=== PATIENT | female | born 1985 | race Two or more races ===

== ENCOUNTER 2017-06-21 14:19 | Emergency (ER) | payer OTHER ==
[~2017-06-21] VITALS: Ht 157.5 cm; Wt 49.9 kg
[2017-06-21] MEDS ORDERED: IV NORMAL SALINE 1000ML BAG 1,000 ML IV SCH (14:59)
[2017-06-21] MEDS ORDERED: ONDANSETRON PF 4 MG/2 ML VIAL. IV ONE (15:00)
[2017-06-21 15:10] LABS: BASO % 1 % (0-3); EOS % 5 % (0-3); HEMOGLOBIN 12.9 g/dL (12.0-15.5); LYMPH # 1.2 x10^3/uL (1.0-4.8); LYMPH % 48 % (24-48); MEAN CORPUSCULAR HEMOGLOBIN 28 pg (25-35); MEAN CORPUSCULAR HGB CONC 34 g/dL (31-37); MEAN CORPUSCULAR VOLUME 84 fL (79-100); MONO % 14 % (0-9); NEUT % 33 % (31-73); PLATELET COUNT 239 x10^3/uL (140-400); RED BLOOD COUNT 4.55 x10^6/uL (3.50-5.40); RED CELL DISTRIBUTION WIDTH 14.6 % (11.5-14.5); WHITE BLOOD COUNT 2.5 x10^3/uL (4.0-11.0)
[2017-06-21 15:17] LABS: BILIRUBIN,URINE NEGATIVE (NEG); GLUCOSE,URINE NEGATIVE (NEG); NITRITE,URINE NEGATIVE (NEG); PH,URINE 7.5; PROTEIN,URINE NEGATIVE (NEG-TRACE); UROBILINOGEN,URINE 0.2 mg/dL (0.2 mg/dL)
[2017-06-21 15:20] LABS: BACTERIA,URINE 0 /HPF (0-FEW); RBC,URINE >40 /HPF (0-2); SQUAMOUS EPITHELIAL CELL,UR FEW /LPF; WBC,URINE 0 /HPF (0-4)
[2017-06-21] MEDS: HYDROmorphone 2 MG/ML VIAL IV/SQ PRN ×4 (15:20→17:10)
[2017-06-21 15:24] LABS: CALCIUM 9.3 mg/dL (8.5-10.1); CREATININE 0.7 mg/dL (0.6-1.0); GFR 98.9; POTASSIUM 3.9 mmol/L (3.5-5.1)
[2017-06-21 15:30] LABS: ALBUMIN 3.9 g/dL (3.4-5.0); TOTAL BILIRUBIN 0.3 mg/dL (0.2-1.0); TOTAL PROTEIN 7.7 g/dL (6.4-8.2)
--- NOTE | 2017-06-21 16:11 | PHYS DOC ---
Past Medical History Past Medical History: Anxiety, Ectopic , Kidney Stone, Ovarian Cyst Past Surgical History: Cholecystectomy, Tubal ligation Alcohol Use: Rarely Drug Use: None Adult General Chief Complaint Chief Complaint: FLANK PAIN HPI HPI Patient is a 31 year old female who presents with complaint of severe left flank pain. Patient states that her pain is currently 10 out of 10. Patient states that she has history of kidney stones. Patient was brought to the emergency department by EMS after stating that she had pain that was so severe that she passed out. The patient per EMS immediately requested IV pain medication upon their arrival and asked what pain medicine they would be giving her. At bedside in the emergency department, the patient states that she continues to have severe pain and was not given medications prior to arrival by EMS. The patient states that she has a history of kidney stones and states that she has followed at [facility] [place] with urology or treatment but states that she recently had her care switched over to [facility] as she wanted to follow with urology here at our hospital. The patient was unaware that urology does not exist here [place] as of April 2017. The patient also interrupted my history taking to ask what pain medication would be given to her. The patient states that she has had bad reactions to fentanyl and morphine but states that Dilaudid is the only thing that works for her pain. Patient also states that she cannot have Toradol as this has been linked to her having "seizures." Patient states that she follows with Dr. Espinoza. The patient does not have any medications at home to help her symptoms which is why she came to the emergency department for evaluation. Patient has had associated nausea and vomiting. The patient states that she does not follow with any other physicians. Review of Systems Review of Systems Constitutional: Denies fever or chills [] Eyes: Denies change in visual acuity, redness, or eye pain [] HENT: Denies nasal congestion or sore throat [] Respiratory: Denies cough or shortness of breath [] Cardiovascular: Denies chest pain or edema[] GI: Nausea, vomiting, denies diarrhea[] : Left flank pain[] Musculoskeletal: Denies back pain or joint pain [] Integument: Denies rash or skin lesions [] Neurologic: Denies headache, focal weakness or sensory changes [] Current Medications Current Medications Current Medications Medications (Trade) Dose Ordered Sig/[facility] Start Time Stop Time Status Last Admin Dose Admin Hydromorphone HCl (Dilaudid) 1 mg PRN Q15MIN PRN 06/21/17 15:00 06/21/17 19:32 DC 06/21/17 17:10 1 MG Ondansetron HCl (Zofran) 4 mg 1X ONCE 06/21/17 15:00 06/21/17 15:04 DC 06/21/17 15:19 4 MG Sodium Chloride 1,000 ml @ 1,000 mls/hr Q1H 06/21/17 14:59 06/21/17 15:58 DC 06/21/17 15:20 1,000 MLS/HR Allergies Allergies Allergies Coded Allergies Type Severity Reaction Last Updated Verified ketorolac Allergy Severe 12/29/15 Yes latex Allergy Intermediate Rash 12/29/15 Yes Physical Exam Physical Exam Constitutional: Alert, afebrile, tachycardic, appears anxious and in moderate to severe discomfort. [] HENT: Normocephalic, atraumatic, bilateral external ears normal, oropharynx moist, no oral exudates, nose normal. [] Eyes: PERRLA, EOMI, conjunctiva normal, no discharge. [] Neck: Normal range of motion, no tenderness, supple, no stridor. [] Cardiovascular: Tachycardia, regular rhythm, no murmur [] Lungs & Thorax: Bilateral breath sounds clear to auscultation [] Abdomen: Bowel sounds normal, soft, left lower quadrant tenderness to palpation with voluntary guarding, no rebound tenderness, no masses, no pulsatile masses. [] Skin: Warm, dry, no erythema, no rash. [] Back: No midline tenderness, left CVA tenderness, no flank ecchymosis. [] Extremities: No tenderness, no cyanosis, no clubbing, ROM intact, no edema. [] Neurologic: Alert and oriented X 3, normal motor function, normal sensory function, no focal deficits noted. [] Current Patient Data Vital Signs Vital Signs Date Time Temp Pulse Resp B/P (MAP) Pulse Ox O2 Delivery O2 Flow Rate FiO2 06/21/17 19:00 82 11 102/75 (84) 98 Room Air 06/21/17 16:59 95.0 06/21/17 14:20 98.0 98.0 Lab Values Laboratory Tests Test 06/21/17 14:30 9/16/17 14:35 White Blood Count 2.5 x10^3/uL (4.0-11.0) L Red Blood Count 4.55 x10^6/uL (3.50-5.40) Hemoglobin 12.9 g/dL (12.0-15.5) Hematocrit 38.0 % (36.0-47.0) Mean Corpuscular Volume 84 fL (79-100) Mean Corpuscular Hemoglobin 28 pg (25-35) Mean Corpuscular Hemoglobin Concent 34 g/dL (31-37) Red Cell Distribution Width 14.6 % (11.5-14.5) H Platelet Count 239 x10^3/uL (140-400) Neutrophils (%) (Auto) 33 % (31-73) Lymphocytes (%) (Auto) 48 % (24-48) Monocytes (%) (Auto) 14 % (0-9) H Eosinophils (%) (Auto) 5 % (0-3) H Basophils (%) (Auto) 1 % (0-3) Neutrophils # (Auto) 0.8 x10^3uL (1.8-7.7) L Lymphocytes # (Auto) 1.2 x10^3/uL (1.0-4.8) Monocytes # (Auto) 0.3 x10^3/uL (0.0-1.1) Eosinophils # (Auto) 0.1 x10^3/uL (0.0-0.7) Basophils # (Auto) 0.0 x10^3/uL (0.0-0.2) Urine Collection Type Unknown Urine Color Yellow Urine Clarity Clear Urine pH 7.5 Urine Specific Iron 1.010 Urine Protein Negative mg/dL (NEG-TRACE) Urine Glucose (UA) Negative mg/dL (NEG) Urine Ketones (Stick) Trace mg/dL (NEG) Urine Blood Large (NEG) Urine Nitrite Negative (NEG) Urine Bilirubin Negative (NEG) Urine Urobilinogen Dipstick 0.2 mg/dL (0.2 mg/dL) Urine Leukocyte Esterase Negative (NEG) Urine RBC >40 /HPF (0-2) Urine WBC 0 /HPF (0-4) Urine Squamous Epithelial Cells Few /LPF Urine Bacteria 0 /HPF (0-FEW) Sodium Level 138 mmol/L (136-145) Potassium Level 3.9 mmol/L (3.5-5.1) Chloride Level 104 mmol/L (98-107) Carbon Dioxide Level 26 mmol/L (21-32) Anion Gap 8 (6-14) Blood Urea Nitrogen 11 mg/dL (7-20) Creatinine 0.7 mg/dL (0.6-1.0) Estimated GFR (Cockcroft-Gault) 98.9 BUN/Creatinine Ratio 16 (6-20) Glucose Level 92 mg/dL (70-99) Calcium Level 9.3 mg/dL (8.5-10.1) Total Bilirubin 0.3 mg/dL (0.2-1.0) Aspartate Amino Transferase (AST) 16 U/L (15-37) Alanine Aminotransferase (ALT) 20 U/L (14-59) Alkaline Phosphatase 84 U/L (46-116) Total Protein 7.7 g/dL (6.4-8.2) Albumin 3.9 g/dL (3.4-5.0) Albumin/Globulin Ratio 1.0 (1.0-1.7) Lipase 234 U/L (73-393) POC Urine HCG, Qualitative Hcg negative (Negative) Laboratory Tests 06/21/17 14:30 Laboratory Tests 06/21/17 14:30 EKG EKG Not performed[] Radiology/Procedures Radiology/Procedures [facility] [address] [place] [address] IMAGING REPORT Signed PATIENT: PAPO [place] ACCOUNT: [id number] : 1985 LOCATION: ER AGE: 31 SEX: F EXAM STATUS: REG ER ORD. PHYSICIAN: VÍCTOR FERNANDEZ MD REASON: left flank pain, reported history of kidney stone, eval for hydronephrosis PROCEDURE: RENAL COMPLETE LEFT Renal ultrasound 06/21/2017 at 5:17 PM INDICATION: Left flank pain with history of kidney stone. COMPARISON: CT abdomen/pelvis February 22, 2016 TECHNIQUE: Sonographic imaging of the kidneys is performed utilizing grayscale and color Doppler. FINDINGS: The right kidney measures 10.0 x 4.3 x 5.2 cm. Left kidney measures 10.3 x 5.7 x 5.9 cm. Kidneys are normal in echogenicity. Previously seen right-sided renal calculi are not definitively seen on the current examination. There is no hydronephrosis. No contour deforming renal mass. Urinary bladder is within normal limits. Bilateral ureteral jets are visualized. There is 332 cc postvoid residual. IMPRESSION: 1. No evidence for obstructive uropathy. No hydronephrosis. PICC line 2. 332 cc postvoid residual. Electronically signed by: Larissa Velez MD (06/21/2017 6:38 PM) [facility] DICTATED and SIGNED BY: LARISSA VELEZ MD DATE: 06/21/17 183 CC: VÍCTOR FERNANDEZ MD; MOLLY ESPINOZA MD ~ [] Course & Med Decision Making Course & Med Decision Making Pertinent Labs and Imaging studies reviewed. (See chart for details) The patient states that she has had multiple CT scans in the past 4 similar complaints. The patient's CT scan which was completed on February 22, 2016 here [facility] showed no evidence of left renal calculi but did show calcifications in the right kidney which is contralateral to the patient's current complaints. Due to concern for re-exposure to radiation, the patient was evaluated through blood work and left renal ultrasound. Patient's blood work was unremarkable and patient's renal ultrasound showed no evidence of hydronephrosis. The patient was given 4 doses of IV Dilaudid in the emergency department which initially helped with patient's symptoms, however the patient would request additional doses of IV Dilaudid within an hour of receiving the previous. Based off of the patient's behavior, I have suspicion that the patient is displaying drug-seeking behavior. The patient was referenced on [employer] prescription drug tracking system it was found to have filled prescriptions on June 19, 2017 for Ambien and alprazolam. Patient also was found to have received oxycodone last filled in March 2017. These medications were filled by Dr. Honorio Castaneda, the patient's doctor over the past several months who she failed to mention when asked if she had any physicians writing for pain medications for her. I spoke with patient regarding, and she admitted that she had been following with Dr. Castaneda but stopped following with him because she "did not jive well" under his care. I do not find any immediate life -threatening causes for the patient's pain. I instructed the patient that I would not be able to write her for any narcotic pain medication prescriptions. Due to the presence of hematuria, the patient may have a small nonobstructive stone causing her symptoms though this is unlikely as the patient's previous CT showed evidence of right-sided ureteral stones. Nonetheless, the patient was given a prescription for Flomax. The patient was also given prescriptions for Keflex and Zofran for treatment of possible urinary tract infection associated with the patient's symptoms. I recommended that the patient follow-up in 2 days with her primary doctor, Dr. Espinoza, for reevaluation. Recommended that the patient return to the emergency department for any worsening symptoms. Dragon Disclaimer Dragon Disclaimer This electronic medical record was generated, in whole or in part, using a voice recognition dictation system. Departure Departure Impression: Primary Impression: Flank pain Additional Impression: Hematuria Disposition: HOME, SELF-CARE Condition: STABLE Referrals: MOLLY ESPINOZA MD (PCP) Patient Instructions: Flank Pain Additional Instructions: Follow-up in [address] Espinoza for reevaluation. Return to the emergency department for any worsening symptoms. Scripts Ondansetron (ZOFRAN ODT) 4 Mg Tab.rapdis 1 TAB SL Q8HRS Y for NAUSEA/VOMITING, #15 TAB Prov: VÍCTOR FERNANDEZ MD 06/21/17 Cephalexin (KEFLEX) 500 Mg Capsule 1 CAP PO TID, #21 CAP Prov: VÍCTOR FERNANDEZ MD 06/21/17 Tamsulosin Hcl (FLOMAX) 0.4 Mg Cap.er.24h 1 CAP PO DAILY, #30 CAP 0 Refills Prov: VÍCTOR FERNANDEZ MD 06/21/17 Problem Qualifiers Additional Impression: Hematuria Hematuria type: unspecified type Qualified Codes: R31.9 - Hematuria, unspecified VÍCTOR FERNANDEZ MD Jun 21, 2017 16:11
--- NOTE | 2017-06-21 18:41 | RAD ---
Renal ultrasound 06/21/2017 at 5:17 PM INDICATION: Left flank pain with history of kidney stone. COMPARISON: CT abdomen/pelvis February 22, 2016 TECHNIQUE: Sonographic imaging of the kidneys is performed utilizing grayscale and color Doppler. FINDINGS: The right kidney measures 10.0 x 4.3 x 5.2 cm. Left kidney measures 10.3 x 5.7 x 5.9 cm. Kidneys are normal in echogenicity. Previously seen right-sided renal calculi are not definitively seen on the current examination. There is no hydronephrosis. No contour deforming renal mass. Urinary bladder is within normal limits. Bilateral ureteral jets are visualized. There is 332 cc postvoid residual. IMPRESSION: 1. No evidence for obstructive uropathy. No hydronephrosis. PICC line 2. 332 cc postvoid residual. Electronically signed by: Lucy Jimenez MD (06/21/2017 6:38 PM) [facility]
[2017-06-21 19:00] VITALS: BP 102/75
[2017-06-21] MEDS ORDERED: ONDA4TAB10 SL (19:13)
[2017-06-21] MEDS ORDERED: CEPH-264 PO (19:13)
[2017-06-21] MEDS ORDERED: TAMS0.4C97 PO (19:13)
== END 2017-06-21 19:31 | disposition home or self-care (01) ==
LOC: ER 14:19
DX: R10.32 Left lower quadrant pain (principal); R31.9 Hematuria, unspecified; Z87.442 Personal history of urinary calculi; Z90.49 Acquired absence of other specified parts of digestive tract; Z98.51 Tubal ligation status; Z88.6 Allergy status to analgesic agent; Z91.040 Latex allergy status
CPT/HCPCS: 36415; 76775; 80053; 81001; 81025; 83690; 85025; 96361; 96374; 96375; 96376; 99285; J1170; J2405; J7030

== ENCOUNTER 2017-10-23 13:02 | Emergency (ER) | payer OTHER ==
[2017-10-23 13:27] LABS: URINE HCG POC HCG NEGATIVE (Negative)
[2017-10-23] MEDS: HYDROcodone/APAP 10/325 1 TAB TABLET PO (13:44)
[2017-10-23] MEDS: PHENAZOPYRIDINE 200 MG TABLET. PO (13:44)
[2017-10-23] MEDS: ONDANSETRON ODT 4 MG TAB.RAPDIS. PO (13:44)
[2017-10-23 13:46] LABS: BILIRUBIN,URINE NEGATIVE (NEG); CLARITY,URINE CLEAR; GLUCOSE,URINE NEGATIVE (NEG); NITRITE,URINE NEGATIVE (NEG); PH,URINE 7.5; PROTEIN,URINE NEGATIVE (NEG-TRACE)
[2017-10-23 13:55] LABS: BACTERIA,URINE MANY /HPF (0-FEW); COLOR,URINE STRAW; RBC,URINE OCC /HPF (0-2); SQUAMOUS EPITHELIAL CELL,UR MANY /LPF
== END 2017-10-23 15:34 | disposition home or self-care (01) ==
LOC: ER 13:02
DX: R10.31 Right lower quadrant pain (principal); R11.2 Nausea with vomiting, unspecified; R30.0 Dysuria; Z87.442 Personal history of urinary calculi; Z87.440 Personal history of urinary (tract) infections; Z90.49 Acquired absence of other specified parts of digestive tract; Z98.51 Tubal ligation status; Z88.6 Allergy status to analgesic agent; Z91.040 Latex allergy status
CPT/HCPCS: 74176; 81001; 81025; 87086; 99285-25; Q0162

== ENCOUNTER 2017-10-29 03:50 | Emergency (ER) | payer OTHER ==
[2017-10-29 04:18] LABS: URINE HCG POC HCG NEGATIVE (Negative)
[2017-10-29 04:21] LABS: ADD MAN DIFF? NO
[2017-10-29 04:27] LABS: BILIRUBIN,URINE NEGATIVE (NEG); CLARITY,URINE CLEAR; COLOR,URINE AMBER; GLUCOSE,URINE NEGATIVE (NEG); NITRITE,URINE NEGATIVE (NEG); PROTEIN,URINE 30 mg/dL (NEG-TRACE); UROBILINOGEN,URINE 0.2 mg/dL (0.2 mg/dL)
[2017-10-29 04:30] LABS: BASO % 1 % (0-3); EOS % 1 % (0-3); HEMATOCRIT 36.4 % (36.0-47.0); HEMOGLOBIN 12.1 g/dL (12.0-15.5); LYMPH # 1.8 x10^3/uL (1.0-4.8); LYMPH % 42 % (24-48); MEAN CORPUSCULAR HEMOGLOBIN 30 pg (25-35); MEAN CORPUSCULAR HGB CONC 33 g/dL (31-37); MEAN CORPUSCULAR VOLUME 91 fL (79-100); MONO # 0.3 x10^3/uL (0.0-1.1); MONO % 7 % (0-9); NEUT # 2.1 x10^3uL (1.8-7.7); NEUT % 49 % (31-73); PLATELET COUNT 172 x10^3/uL (140-400); RED BLOOD COUNT 4.01 x10^6/uL (3.50-5.40); RED CELL DISTRIBUTION WIDTH 13.1 % (11.5-14.5); WHITE BLOOD COUNT 4.3 x10^3/uL (4.0-11.0)
[2017-10-29 04:35] LABS: ANION GAP 12 (6-14); BLOOD UREA NITROGEN 14 mg/dL (7-20); BUN/CREATININE RATIO 18 (6-20); CALCIUM 8.6 mg/dL (8.5-10.1); CARBON DIOXIDE 26 mmol/L (21-32); CHLORIDE 103 mmol/L (98-107); CREATININE 0.8 mg/dL (0.6-1.0); GFR 84.2; GLUCOSE 91 mg/dL (70-99); POTASSIUM 3.8 mmol/L (3.5-5.1); SODIUM 141 mmol/L (136-145)
[2017-10-29] MEDS: IV NORMAL SALINE 1000ML BAG 1,000 ML IV ×2 (04:37)
[2017-10-29 04:40] LABS: ALBUMIN 3.4 g/dL (3.4-5.0); ALK PHOS 45 U/L (46-116); ALT (SGPT) 8 U/L (14-59); AST (SGOT) 8 U/L (15-37); LIPASE 190 U/L (73-393); TOTAL BILIRUBIN 0.3 mg/dL (0.2-1.0); TOTAL PROTEIN 6.9 g/dL (6.4-8.2)
[2017-10-29] MEDS: HYDROmorphone 2 MG/ML VIAL IV/SQ ×4 (04:40→05:06)
[2017-10-29] MEDS: ONDANSETRON PF 4 MG/2 ML VIAL. IV ×2 (04:40)
[2017-10-29 04:43] LABS: RBC,URINE TNTC /HPF (0-2)
[2017-10-29 04:44] LABS: BACTERIA,URINE 0 /HPF (0-FEW); SQUAMOUS EPITHELIAL CELL,UR OCC /LPF; WBC,URINE 0 /HPF (0-4)
== END 2017-10-29 06:22 | disposition home or self-care (01) ==
LOC: ER 03:50
DX: R10.11 Right upper quadrant pain (principal); R31.9 Hematuria, unspecified; F41.9 Anxiety disorder, unspecified; Z87.442 Personal history of urinary calculi; Z90.49 Acquired absence of other specified parts of digestive tract; Z98.51 Tubal ligation status; Z88.8 Allergy status to other drugs, medicaments and biological substances; Z88.1 Allergy status to other antibiotic agents; Z91.040 Latex allergy status
CPT/HCPCS: 36415; 74176; 80053; 81001; 81025; 83690; 85025; 96361; 96374; 96375; 99285-25; J1170; J2405; J7030

== ENCOUNTER 2017-10-31 09:26 | Emergency (ER) | payer OTHER ==
[2017-10-31 09:57] LABS: BILIRUBIN,URINE NEGATIVE (NEG); CLARITY,URINE CLEAR; COLOR,URINE RED; GLUCOSE,URINE NEGATIVE (NEG); NITRITE,URINE POSITIVE (NEG); PROTEIN,URINE 30 mg/dL (NEG-TRACE)
[2017-10-31 10:10] LABS: RBC,URINE TNTC /HPF (0-2); SQUAMOUS EPITHELIAL CELL,UR MANY /LPF
[2017-10-31 10:11] LABS: BACTERIA,URINE MODERATE /HPF (0-FEW)
[2017-10-31 10:14] LABS: NEG OBC UR NEG; POS OBC UR POS; U PREG PATIENT NEGATIVE (NEG)
[2017-10-31] MEDS: ONDANSETRON PF 4 MG/2 ML VIAL. IV (10:14)
[2017-10-31] MEDS: MORPHINE SULFATE 10 MG/ML VIAL. IV (10:14)
[2017-10-31] MEDS: HYDROmorphone 2 MG/ML VIAL IV (10:17)
[2017-10-31 10:18] LABS: ADD MAN DIFF? NO
[2017-10-31 10:21] LABS: BASO % 1 % (0-3); EOS # 0.1 x10^3/uL (0.0-0.7); EOS % 4 % (0-3); HEMOGLOBIN 11.3 g/dL (12.0-15.5); LYMPH # 1.3 x10^3/uL (1.0-4.8); LYMPH % 37 % (24-48); MEAN CORPUSCULAR HEMOGLOBIN 31 pg (25-35); MEAN CORPUSCULAR HGB CONC 34 g/dL (31-37); MEAN CORPUSCULAR VOLUME 92 fL (79-100); MONO # 0.3 x10^3/uL (0.0-1.1); MONO % 8 % (0-9); NEUT # 1.7 x10^3uL (1.8-7.7); NEUT % 50 % (31-73); PLATELET COUNT 134 x10^3/uL (140-400); WHITE BLOOD COUNT 3.5 x10^3/uL (4.0-11.0)
[2017-10-31 10:25] LABS: BARBITURATES NEG (NEG); BENZODIAZEPINES POS (NEG); CANNABINOIDS NEG (NEG); COCAINE NEG (NEG); METHADONE NEG (NEG); OPIATES NEG (NEG); PHENCYCLIDINE NEG (NEG)
[2017-10-31 10:27] LABS: AMPHETAMINE/METHAMPHETAMINE NEG (NEG); ETHANOL, URINE NEG (NEG)
[2017-10-31 10:41] LABS: ANION GAP 7 (6-14); BLOOD UREA NITROGEN 10 mg/dL (7-20); BUN/CREATININE RATIO 11 (6-20); CALCIUM 8.4 mg/dL (8.5-10.1); CARBON DIOXIDE 30 mmol/L (21-32); CHLORIDE 101 mmol/L (98-107); CREATININE 0.9 mg/dL (0.6-1.0); GFR 73.5; GLUCOSE 89 mg/dL (70-99); SODIUM 138 mmol/L (136-145)
[2017-10-31 10:42] LABS: ALBUMIN 3.3 g/dL (3.4-5.0); ALK PHOS 42 U/L (46-116); ALT (SGPT) 8 U/L (14-59); AST (SGOT) 6 U/L (15-37); LIPASE 137 U/L (73-393); TOTAL BILIRUBIN 0.3 mg/dL (0.2-1.0); TOTAL PROTEIN 6.6 g/dL (6.4-8.2)
[2017-10-31] MEDS ORDERED: CIPROFLOXACIN 400MG PREMIX 200 ML IV (21:00)
[2017-11-03 20:13] LABS: CHLAMYDIA PROBE Negative (Negative); GC PROBE Negative (Negative)
== END 2017-10-31 13:42 | disposition home or self-care (01) ==
LOC: ER 09:26
DX: G89.29 Other chronic pain (principal); R10.31 Right lower quadrant pain; N39.0 Urinary tract infection, site not specified; F11.20 Opioid dependence, uncomplicated; Z90.49 Acquired absence of other specified parts of digestive tract; Z98.51 Tubal ligation status; Z88.6 Allergy status to analgesic agent; Z88.1 Allergy status to other antibiotic agents; Z91.040 Latex allergy status
CPT/HCPCS: 36415; 76700; 80053; 80307; 81001; 81025; 83690; 85025; 87086; 87491; 87591; 96365; 96375; 99285-25; J0690; J2270; J2405; Q0111

== ENCOUNTER 2017-11-04 18:14 | Emergency (ER) | payer OTHER ==
[2017-11-04 18:45] LABS: ADD MAN DIFF? NO
[2017-11-04 18:51] LABS: URINE HCG POC HCG NEGATIVE (Negative)
[2017-11-04 18:52] LABS: BILIRUBIN,URINE NEGATIVE (NEG); CLARITY,URINE CLOUDY; COLOR,URINE YELLOW; GLUCOSE,URINE NEGATIVE (NEG); NITRITE,URINE NEGATIVE (NEG); PROTEIN,URINE NEGATIVE (NEG-TRACE); UROBILINOGEN,URINE 0.2 mg/dL (0.2 mg/dL)
[2017-11-04] MEDS: IV NORMAL SALINE 1000ML BAG 1,000 ML IV ×2 (18:52)
[2017-11-04] MEDS: HALOPERIDOL LACTATE 5 MG/ML VIAL. IVP ×2 (18:52)
[2017-11-04] MEDS: METOCLOPRAMIDE HCL 10 MG/2 ML VIAL. IV ×2 (18:52)
[2017-11-04] MEDS: FAMOTIDINE 20 MG/2 ML VIAL IVP ×2 (18:52)
[2017-11-04 18:53] LABS: BASO % 0 % (0-3); EOS % 1 % (0-3); HEMOGLOBIN 12.8 g/dL (12.0-15.5); LYMPH # 0.8 x10^3/uL (1.0-4.8); LYMPH % 14 % (24-48); MEAN CORPUSCULAR HEMOGLOBIN 32 pg (25-35); MEAN CORPUSCULAR HGB CONC 35 g/dL (31-37); MEAN CORPUSCULAR VOLUME 92 fL (79-100); MONO # 0.2 x10^3/uL (0.0-1.1); MONO % 4 % (0-9); NEUT # 4.7 x10^3uL (1.8-7.7); NEUT % 81 % (31-73); PLATELET COUNT 171 x10^3/uL (140-400); RED BLOOD COUNT 4.04 x10^6/uL (3.50-5.40); RED CELL DISTRIBUTION WIDTH 13.2 % (11.5-14.5); WHITE BLOOD COUNT 5.7 x10^3/uL (4.0-11.0)
[2017-11-04] MEDS ORDERED: IOHEXOL 300 MG/ML 100ML VIAL. IV ×2 (19:00)
[2017-11-04 19:01] LABS: ANION GAP 11 (6-14); BLOOD UREA NITROGEN 16 mg/dL (7-20); BUN/CREATININE RATIO 18 (6-20); CALCIUM 10.2 mg/dL (8.5-10.1); CARBON DIOXIDE 26 mmol/L (21-32); CHLORIDE 103 mmol/L (98-107); CREATININE 0.9 mg/dL (0.6-1.0); GFR 73.5; GLUCOSE 134 mg/dL (70-99); POTASSIUM 4.2 mmol/L (3.5-5.1); SODIUM 140 mmol/L (136-145)
[2017-11-04 19:05] LABS: BACTERIA,URINE MODERATE /HPF (0-FEW); RBC,URINE 0 /HPF (0-2); SQUAMOUS EPITHELIAL CELL,UR MANY /LPF
[2017-11-04 19:07] LABS: ALBUMIN 3.9 g/dL (3.4-5.0); ALK PHOS 52 U/L (46-116); ALT (SGPT) 6 U/L (14-59); AST (SGOT) 9 U/L (15-37); LIPASE 133 U/L (73-393); TOTAL BILIRUBIN 0.3 mg/dL (0.2-1.0); TOTAL PROTEIN 7.8 g/dL (6.4-8.2)
[2017-11-04] MEDS ORDERED: CONTRAST GIVEN MC ×2 (19:15)
[2017-11-04] MEDS: ACETAMINOPHEN 500 MG TABLET PO ×2 (19:49)
== END 2017-11-04 19:52 | disposition home or self-care (01) ==
LOC: ER 18:14
DX: N39.0 Urinary tract infection, site not specified (principal); G89.29 Other chronic pain; Z90.49 Acquired absence of other specified parts of digestive tract; Z87.442 Personal history of urinary calculi; Z98.51 Tubal ligation status; Z88.1 Allergy status to other antibiotic agents; Z88.6 Allergy status to analgesic agent; Z91.040 Latex allergy status
CPT/HCPCS: 36415; 80053; 81001; 81025; 83690; 85025; 87086; 96361; 96374; 96375; 99284-25; J1630; J2765; J7030; S0028

== ENCOUNTER 2017-11-07 15:34 | Emergency (ER) | payer OTHER ==
[2017-11-07] MEDS: IV NORMAL SALINE 1000ML BAG 1,000 ML IV ×2 (16:57)
[2017-11-07] MEDS: PROMETHAZINE 12.5 MG in IV DEXTROSE 5% 50 ML IV (17:01)
[2017-11-07] MEDS: DEXAMETHASONE SOD PHOS 4 MG/ML VIAL IV ×2 (17:02)
[2017-11-07] MEDS: diphenhydrAMINE 50 MG/ML VIAL IVP ×2 (17:02)
[2017-11-07 17:20] LABS: URINE HCG POC HCG NEGATIVE (Negative)
[2017-11-07 17:33] LABS: BILIRUBIN,URINE NEGATIVE (NEG); CLARITY,URINE CLOUDY; COLOR,URINE YELLOW; GLUCOSE,URINE NEGATIVE (NEG); NITRITE,URINE NEGATIVE (NEG); PH,URINE 6.5; PROTEIN,URINE NEGATIVE (NEG-TRACE); UROBILINOGEN,URINE 0.2 mg/dL (0.2 mg/dL)
[2017-11-07 17:37] LABS: ANION GAP 9 (6-14); BLOOD UREA NITROGEN 15 mg/dL (7-20); BUN/CREATININE RATIO 17 (6-20); CALCIUM 8.6 mg/dL (8.5-10.1); CARBON DIOXIDE 26 mmol/L (21-32); CHLORIDE 104 mmol/L (98-107); CREATININE 0.9 mg/dL (0.6-1.0); GFR 73.5; GLUCOSE 93 mg/dL (70-99); POTASSIUM 3.4 mmol/L (3.5-5.1); SODIUM 139 mmol/L (136-145)
[2017-11-07 17:39] LABS: BARBITURATES NEG (NEG); BENZODIAZEPINES POS (NEG); CANNABINOIDS NEG (NEG); COCAINE NEG (NEG); METHADONE NEG (NEG); OPIATES NEG (NEG); PHENCYCLIDINE NEG (NEG)
[2017-11-07 17:43] LABS: AMPHETAMINE/METHAMPHETAMINE NEG (NEG); ETHANOL, URINE NEG (NEG)
[2017-11-07 17:44] LABS: ALBUMIN 3.4 g/dL (3.4-5.0); ALBUMIN/GLOBULIN RATIO 1.1 (1.0-1.7); ALK PHOS 43 U/L (46-116); ALT (SGPT) 14 U/L (14-59); AST (SGOT) 15 U/L (15-37); TOTAL BILIRUBIN 0.3 mg/dL (0.2-1.0); TOTAL PROTEIN 6.6 g/dL (6.4-8.2)
[2017-11-07 17:45] LABS: BACTERIA,URINE MODERATE /HPF (0-FEW); RBC,URINE 0 /HPF (0-2); SQUAMOUS EPITHELIAL CELL,UR MOD /LPF
[2017-11-07 17:46] LABS: HYALINE CASTS, URINE OCCASIONAL /HPF
[2017-11-07 17:51] LABS: ETHANOL < 10 mg/dL (0-10)
== END 2017-11-07 18:53 | disposition home or self-care (01) ==
LOC: ER 15:34
DX: R56.9 Unspecified convulsions (principal); F13.239 Sedative, hypnotic or anxiolytic dependence with withdrawal, unspecified; R00.0 Tachycardia, unspecified; F41.9 Anxiety disorder, unspecified; Z90.49 Acquired absence of other specified parts of digestive tract; Z98.51 Tubal ligation status; Z88.6 Allergy status to analgesic agent; Z88.1 Allergy status to other antibiotic agents; Z91.040 Latex allergy status
CPT/HCPCS: 36415; 70450; 80053; 80307; 81001; 81025; 87040; 87086; 93005; 96365; 96366; 96375; 99285-25; G0480; J1100; J1200; J2060; J2550; J7030

== ENCOUNTER 2017-11-20 19:38 | Emergency (ER) | payer OTHER ==
[2017-11-20 20:16] LABS: URINE HCG POC HCG NEGATIVE (Negative)
[2017-11-20 20:35] LABS: BILIRUBIN,URINE SMALL (NEG); CLARITY,URINE CLOUDY; COLOR,URINE RED; GLUCOSE,URINE NEGATIVE (NEG); NITRITE,URINE NEGATIVE (NEG); PROTEIN,URINE 30 mg/dL (NEG-TRACE)
[2017-11-20 20:47] LABS: ADD MAN DIFF? NO
[2017-11-20] MEDS: ONDANSETRON ODT 4 MG TAB.RAPDIS. PO ×2 (20:51)
[2017-11-20] MEDS: DICYCLOMINE HCL 10 MG CAPSULE PO ×2 (20:52)
[2017-11-20 20:53] LABS: BASO % 0 % (0-3); EOS # 0.1 x10^3/uL (0.0-0.7); EOS % 4 % (0-3); HEMATOCRIT 35.5 % (36.0-47.0); HEMOGLOBIN 12.4 g/dL (12.0-15.5); LYMPH # 1.6 x10^3/uL (1.0-4.8); LYMPH % 45 % (24-48); MEAN CORPUSCULAR HEMOGLOBIN 31 pg (25-35); MEAN CORPUSCULAR HGB CONC 35 g/dL (31-37); MEAN CORPUSCULAR VOLUME 90 fL (79-100); MONO # 0.2 x10^3/uL (0.0-1.1); MONO % 6 % (0-9); NEUT # 1.6 x10^3uL (1.8-7.7); NEUT % 45 % (31-73); PLATELET COUNT 264 x10^3/uL (140-400); RED BLOOD COUNT 3.96 x10^6/uL (3.50-5.40); RED CELL DISTRIBUTION WIDTH 13.3 % (11.5-14.5); WHITE BLOOD COUNT 3.6 x10^3/uL (4.0-11.0)
[2017-11-20] MEDS: traMADol 50 MG TABLET PO ×2 (20:53)
[2017-11-20 21:04] LABS: ANION GAP 8 (6-14); BACTERIA,URINE 0 /HPF (0-FEW); BLOOD UREA NITROGEN 17 mg/dL (7-20); BUN/CREATININE RATIO 19 (6-20); CALCIUM 9.3 mg/dL (8.5-10.1); CARBON DIOXIDE 29 mmol/L (21-32); CHLORIDE 104 mmol/L (98-107); CREATININE 0.9 mg/dL (0.6-1.0); GFR 73.5; GLUCOSE 110 mg/dL (70-99); POTASSIUM 3.7 mmol/L (3.5-5.1); RBC,URINE TNTC /HPF (0-2); SODIUM 141 mmol/L (136-145); SQUAMOUS EPITHELIAL CELL,UR OCC /LPF
[2017-11-20 21:11] LABS: ALBUMIN 3.7 g/dL (3.4-5.0); ALBUMIN/GLOBULIN RATIO 0.9 (1.0-1.7); ALK PHOS 51 U/L (46-116); ALT (SGPT) 23 U/L (14-59); AST (SGOT) 17 U/L (15-37); LIPASE 158 U/L (73-393); TOTAL BILIRUBIN 0.6 mg/dL (0.2-1.0); TOTAL PROTEIN 7.6 g/dL (6.4-8.2)
[2017-11-20] MEDS: fentaNYL PF VIAL 100 MCG/2 ML VIAL IV ×4 (21:13→22:08)
[2017-11-20] MEDS: ONDANSETRON PF 4 MG/2 ML VIAL. IV ×2 (21:14)
[2017-11-20] MEDS: HYDROcodone/APAP 5/325MG 1 TAB TABLET PO ×2 (22:39)
== END 2017-11-20 23:07 | disposition home or self-care (01) ==
LOC: ER 19:38
DX: R10.2 Pelvic and perineal pain (principal); R10.84 Generalized abdominal pain; R11.0 Nausea; R30.0 Dysuria; Z98.51 Tubal ligation status; Z90.49 Acquired absence of other specified parts of digestive tract; Z87.440 Personal history of urinary (tract) infections; Z88.1 Allergy status to other antibiotic agents; Z88.4 Allergy status to anesthetic agent; Z91.040 Latex allergy status
CPT/HCPCS: 36415; 76856; 80053; 81001; 81025; 83690; 85025; 87086; 96374; 96375; 96376; 99285-25; J2405; J3010; Q0162

== ENCOUNTER 2017-11-21 15:19 | Emergency (ER) | payer OTHER ==
[2017-11-21] MEDS ORDERED: IV NORMAL SALINE 1000ML BAG 1,000 ML IV ×2 (16:15)
[2017-11-21] MEDS ORDERED: ONDANSETRON PF 4 MG/2 ML VIAL. IV ×2 (16:15)
== END 2017-11-21 16:15 | disposition left against medical advice (07) ==
LOC: ER 15:19
DX: G89.29 Other chronic pain (principal); R10.9 Unspecified abdominal pain; F41.9 Anxiety disorder, unspecified; Z76.5 Malingerer [conscious simulation]; R10.2 Pelvic and perineal pain; Z98.51 Tubal ligation status; Z90.49 Acquired absence of other specified parts of digestive tract; Z87.440 Personal history of urinary (tract) infections; Z88.1 Allergy status to other antibiotic agents; Z88.6 Allergy status to analgesic agent; Z91.040 Latex allergy status
CPT/HCPCS: 99284

== ENCOUNTER 2017-12-16 12:48 | Emergency (ER) | payer OTHER ==
[2017-12-16 13:11] LABS: URINE HCG POC HCG NEGATIVE (Negative)
[2017-12-16 13:11] LABS: BILIRUBIN,URINE NEGATIVE (NEG); CLARITY,URINE CLEAR; COLOR,URINE YELLOW; GLUCOSE,URINE NEGATIVE (NEG); NITRITE,URINE NEGATIVE (NEG); PH,URINE 6.5; PROTEIN,URINE NEGATIVE (NEG-TRACE)
[2017-12-16 13:30] LABS: SQUAMOUS EPITHELIAL CELL,UR MANY /LPF
[2017-12-16 13:31] LABS: BACTERIA,URINE FEW /HPF (0-FEW); RBC,URINE OCC /HPF (0-2)
[2017-12-16] MEDS: ONDANSETRON PF 4 MG/2 ML VIAL. IV (14:47)
[2017-12-16] MEDS: fentaNYL PF VIAL 100 MCG/2 ML VIAL IV (14:48)
== END 2017-12-16 15:14 | disposition home or self-care (01) ==
LOC: ER 12:48
DX: R10.9 Unspecified abdominal pain (principal); R11.2 Nausea with vomiting, unspecified; Z87.440 Personal history of urinary (tract) infections; Z90.49 Acquired absence of other specified parts of digestive tract; Z98.51 Tubal ligation status; Z87.442 Personal history of urinary calculi; Z98.890 Other specified postprocedural states; Z88.6 Allergy status to analgesic agent; Z88.1 Allergy status to other antibiotic agents; Z91.040 Latex allergy status
CPT/HCPCS: 74176; 81001; 81025; 96374; 96375; 99285-25; J2405; J3010

== ENCOUNTER 2018-03-02 11:01 | Emergency (ER) | payer OTHER ==
[2018-03-02 11:33] LABS: URINE HCG POC HCG NEGATIVE (Negative)
[2018-03-02 11:37] LABS: ADD MAN DIFF? NO
[2018-03-02] MEDS: ONDANSETRON ODT 4 MG TAB.RAPDIS. PO (11:37)
[2018-03-02 11:38] LABS: BILIRUBIN,URINE NEGATIVE (NEG); CLARITY,URINE CLEAR; COLOR,URINE YELLOW; GLUCOSE,URINE NEGATIVE (NEG); NITRITE,URINE NEGATIVE (NEG); PROTEIN,URINE NEGATIVE (NEG-TRACE); UROBILINOGEN,URINE 0.2 mg/dL (0.2 mg/dL)
[2018-03-02] MEDS: HYDROcodone/APAP 5/325MG 1 TAB TABLET PO (11:38)
[2018-03-02] MEDS: LIDO:MAALOX 1:1 20 ML SINGLE DOSE. SWSW (11:38)
[2018-03-02] MEDS: HALOPERIDOL LACTATE 5 MG/ML VIAL. IM (11:39)
[2018-03-02 11:40] LABS: BARBITURATES NEG (NEG); BENZODIAZEPINES POS (NEG); CANNABINOIDS NEG (NEG); COCAINE NEG (NEG); METHADONE NEG (NEG); OPIATES NEG (NEG); PHENCYCLIDINE NEG (NEG)
[2018-03-02 11:42] LABS: AMPHETAMINE/METHAMPHETAMINE NEG (NEG); ETHANOL, URINE NEG (NEG)
[2018-03-02 11:44] LABS: BASO % 1 % (0-3); EOS # 0.1 x10^3/uL (0.0-0.7); EOS % 3 % (0-3); HEMOGLOBIN 13.1 g/dL (12.0-15.5); LYMPH # 1.2 x10^3/uL (1.0-4.8); LYMPH % 39 % (24-48); MEAN CORPUSCULAR HEMOGLOBIN 29 pg (25-35); MEAN CORPUSCULAR HGB CONC 34 g/dL (31-37); MEAN CORPUSCULAR VOLUME 85 fL (79-100); MONO # 0.3 x10^3/uL (0.0-1.1); MONO % 9 % (0-9); NEUT # 1.5 x10^3uL (1.8-7.7); NEUT % 49 % (31-73); PLATELET COUNT 211 x10^3/uL (140-400); RED BLOOD COUNT 4.58 x10^6/uL (3.50-5.40); RED CELL DISTRIBUTION WIDTH 13.4 % (11.5-14.5); WHITE BLOOD COUNT 3.1 x10^3/uL (4.0-11.0)
[2018-03-02 11:50] LABS: ANION GAP 8 (6-14); BLOOD UREA NITROGEN 7 mg/dL (7-20); BUN/CREATININE RATIO 8 (6-20); CALCIUM 9.4 mg/dL (8.5-10.1); CARBON DIOXIDE 27 mmol/L (21-32); CHLORIDE 104 mmol/L (98-107); CREATININE 0.9 mg/dL (0.6-1.0); GFR 73.5; GLUCOSE 93 mg/dL (70-99); POTASSIUM 3.8 mmol/L (3.5-5.1); SODIUM 139 mmol/L (136-145)
[2018-03-02 11:53] LABS: BACTERIA,URINE MANY /HPF (0-FEW); RBC,URINE 0 /HPF (0-2); SQUAMOUS EPITHELIAL CELL,UR MANY /LPF
[2018-03-02 11:55] LABS: ALBUMIN 3.9 g/dL (3.4-5.0); ALBUMIN/GLOBULIN RATIO 1.2 (1.0-1.7); ALK PHOS 65 U/L (46-116); AST (SGOT) 12 U/L (15-37); LIPASE 100 U/L (73-393); TOTAL BILIRUBIN 1.3 mg/dL (0.2-1.0); TOTAL PROTEIN 7.1 g/dL (6.4-8.2)
[2018-03-02 11:57] LABS: ETHANOL < 10 mg/dL (0-10)
[2018-03-02 12:04] LABS: ALT (SGPT) 18 U/L (14-59)
== END 2018-03-02 12:45 | disposition home or self-care (01) ==
LOC: ER 11:01
DX: G89.29 Other chronic pain (principal); R10.84 Generalized abdominal pain; R11.0 Nausea; Z90.49 Acquired absence of other specified parts of digestive tract; Z98.51 Tubal ligation status; Z98.890 Other specified postprocedural states; Z88.6 Allergy status to analgesic agent; Z88.1 Allergy status to other antibiotic agents; Z91.040 Latex allergy status
CPT/HCPCS: 36415; 74176; 80053; 80307; 81001; 81025; 83690; 85025; 96372; 99285; G0480; J1630; Q0162

== ENCOUNTER 2018-05-10 16:09 | Emergency (ER) | payer OTHER ==
[2018-05-10] MEDS ORDERED: ONDANSETRON ODT 4 MG TAB.RAPDIS. PO (16:30)
[2018-05-10] MEDS ORDERED: HYDROcodone/APAP 5/325MG 1 TAB TABLET PO (16:30)
[2018-05-10 16:32] LABS: URINE HCG POC HCG NEGATIVE (Negative)
[2018-05-10 16:41] LABS: BILIRUBIN,URINE SMALL (NEG); CLARITY,URINE CLOUDY; COLOR,URINE AMBER; GLUCOSE,URINE NEGATIVE (NEG); NITRITE,URINE NEGATIVE (NEG); PROTEIN,URINE NEGATIVE (NEG-TRACE)
[2018-05-10 16:48] LABS: AMPHETAMINE/METHAMPHETAMINE NEG (NEG); BARBITURATES NEG (NEG); BENZODIAZEPINES POS (NEG); CANNABINOIDS NEG (NEG); COCAINE NEG (NEG); ETHANOL, URINE NEG (NEG); METHADONE NEG (NEG); OPIATES POS (NEG); PHENCYCLIDINE NEG (NEG)
[2018-05-10 16:55] LABS: BACTERIA,URINE MANY /HPF (0-FEW); RBC,URINE 0 /HPF (0-2); SQUAMOUS EPITHELIAL CELL,UR MANY /LPF
== END 2018-05-10 16:41 | disposition left against medical advice (07) ==
LOC: ER 16:41
DX: R10.9 Unspecified abdominal pain (principal); F17.200 Nicotine dependence, unspecified, uncomplicated; Z90.49 Acquired absence of other specified parts of digestive tract; Z98.51 Tubal ligation status; Z87.440 Personal history of urinary (tract) infections; Z87.442 Personal history of urinary calculi; Z88.8 Allergy status to other drugs, medicaments and biological substances; Z88.1 Allergy status to other antibiotic agents; Z91.040 Latex allergy status
CPT/HCPCS: 80307; 81001; 81025; 87086; 99284

== ENCOUNTER 2018-12-10 09:59 | Emergency (ER) | payer OTHER ==
[~2018-12-10] VITALS: Ht 152.4 cm; Wt 49.9 kg
[~2018-12-10 09:59] MED LIST: CEPH-264 PO; CEPH500T PO; HYDR-2761 PO; ONDA4TAB10 PO; ONDA4TAB10 SL; SULF1TAB24 PO; TAMS0.4C97 PO
[2018-12-10 10:17] VITALS: BP 118/76
[2018-12-10 10:36] LABS: BILIRUBIN,URINE SMALL (NEG); CLARITY,URINE CLEAR; COLOR,URINE YELLOW; NITRITE,URINE NEGATIVE (NEG); PROTEIN,URINE NEGATIVE (NEG-TRACE)
--- NOTE | 2018-12-10 10:42 | PHYS DOC ---
Past Medical History Past Medical History: Anxiety, Kidney Stone, Ovarian Cyst, Seizure, UTI, Other Additional Past Medical Histor: NARCOTIC ABUSE Past Surgical History: Cholecystectomy, Tubal ligation, Other Additional Past Surgical Histo: KIDNEY STONE REMOVAL X2, UTERINE SCRAPING; uterine ablation Alcohol Use: Rarely Drug Use: None Adult General Chief Complaint Chief Complaint: ABDOMINAL PAIN HPI HPI Patient is a 33 year old female, who is well-known to the emergency department with drug-seeking behavior. She presents to the ER today with complaints of right flank pain, nausea, dysuria, and hesitancy to void since yesterday at 1400. Patient reports a significant history of kidney stones. She denies any fever, shortness of breath, cough, diarrhea, hematuria, vomiting, incontinence, or back pain. Currently she rates her pain a 10 out of 10 on the pain scale, she is requesting IV pain medications at this time. SHe states there are no alleviating or exacerbating factors. Review of Systems Review of Systems Constitutional: Denies fever or chills [] Eyes: Denies change in visual acuity HENT: Denies nasal congestion; reports a hoarse voice recent sore throat Respiratory: Denies cough or shortness of breath [] Cardiovascular: No additional information not addressed in HPI [] GI: See history of present illness : See history of present illness Musculoskeletal: Denies back pain or joint pain [] Integument: Denies rash or skin lesions [] Neurologic: Denies headache, focal weakness or sensory changes [] Complete systems were reviewed and found to be within normal limits, except as documented in this note. Current Medications Current Medications Current Medications Medications (Trade) Dose Ordered Sig/[facility] Start Time Stop Time Status Last Admin Dose Admin Ondansetron HCl (Zofran) 4 mg 1X ONCE 12/10/18 10:45 12/10/18 10:46 Phenazopyridine HCl (Pyridium) 200 mg 1X ONCE 12/10/18 10:45 12/10/18 10:46 Sodium Chloride 1,000 ml @ 1,000 mls/hr 1X ONCE 12/10/18 10:45 12/10/18 11:44 Allergies Allergies Allergies Coded Allergies Type Severity Reaction Last Updated Verified ketorolac Allergy Severe 12/29/15 Yes latex Allergy Intermediate Rash 12/29/15 Yes levofloxacin Allergy Intermediate 10/29/17 Yes Physical Exam Physical Exam Constitutional: Well developed, well nourished, no acute distress, non-toxic appearance. [] HENT: Normocephalic, atraumatic, bilateral external ears normal, nose normal. [] Eyes: conjunctiva normal, no discharge. [] Neck: Normal range of motion, no stridor. [] Cardiovascular:Heart rate regular rhythm, no murmur [] Lungs & Thorax: Bilateral breath sounds clear to auscultation [] Abdomen: Bowel sounds normal, soft, RLQ tenderness, no masses, no pulsatile masses. [] Skin: Warm, dry, no erythema, no rash. [] Back: No CVA tenderness. [] Extremities: No cyanosis, ROM intact, no edema. [] Neurologic: Alert and oriented X 3, no focal deficits noted. [] Psychologic: Affect normal, judgement normal, mood normal. [] Current Patient Data Vital Signs Vital Signs Date Time Temp Pulse Resp B/P (MAP) Pulse Ox O2 Delivery O2 Flow Rate FiO2 12/10/18 10:17 98.3 81 16 118/76 (90) 98 Room Air 98.3 Lab Values Laboratory Tests Test 12/10/18 10:10 POC Urine HCG, Qualitative Hcg negative (Negative) EKG EKG [] Radiology/Procedures Radiology/Procedures [] Course & Med Decision Making Course & Med Decision Making Pertinent Labs and Imaging studies reviewed. (See chart for details) 1027- advised patient that an IV, labs, liter of fluid, Zofran, and Pyridium will be ordered. Patient requested IV pain medications and advised patient that no IV pain medications will be ordered at this time. Patient was in agreement with plan of care. 1034- patient told nurse that she would like to sign out AMA [] Dragon Disclaimer Dragon Disclaimer This electronic medical record was generated, in whole or in part, using a voice recognition dictation system. Departure Departure Impression: Primary Impression: Left against medical advice Disposition: 07 AGAINST MEDICAL ADVICE Condition: STABLE Referrals: MOLLY ZAMUDIO MD (PCP) HONG MOJICA APRN Dec 10, 2018 10:42
[2018-12-10 10:44] LABS: BACTERIA,URINE FEW /HPF (0-FEW); RBC,URINE 0 /HPF (0-2); SQUAMOUS EPITHELIAL CELL,UR MANY /LPF
[2018-12-10] MEDS ORDERED: PHENAZOPYRIDINE 200 MG TABLET. PO ONE (10:45)
[2018-12-10] MEDS ORDERED: IV NORMAL SALINE 1000ML BAG 1,000 ML IV ONE (10:45)
[2018-12-10] MEDS ORDERED: ONDANSETRON PF 4 MG/2 ML VIAL. IV ONE (10:45)
== END 2018-12-10 10:45 | disposition left against medical advice (07) ==
LOC: ER 09:59
DX: R10.31 Right lower quadrant pain (principal); R11.0 Nausea; R30.0 Dysuria; R39.11 Hesitancy of micturition; Z87.440 Personal history of urinary (tract) infections; Z87.442 Personal history of urinary calculi; Z98.51 Tubal ligation status; Z90.49 Acquired absence of other specified parts of digestive tract; Z91.040 Latex allergy status; Z88.1 Allergy status to other antibiotic agents; Z88.6 Allergy status to analgesic agent
CPT/HCPCS: 81001; 81025; 87086; 99284